=== PATIENT | male | born 1990 | race American Indian/Alaskan Native ===

== ENCOUNTER 2021-07-24 01:56 | Emergency (ER) | payer MEDICAID, OTHER ==
[~2021-07-24 01:56] MED LIST: hydrOXYzine HCl 50 MG/ML SDV IM ONE
== END 2021-07-24 02:05 ==
LOC: FB.ED 01:56
DX: F22 Delusional disorders (principal); Y90.5 Blood alcohol level of 100-119 mg/100 ml
CPT/HCPCS: 36415; 80053; 80307; 85025; 96372; 99283; 99284; J3410